=== PATIENT | female | born 1985 | race Caucasian/White ===

== ENCOUNTER → 2016-09-08 | Outpatient (CLI) | payer OTHER ==
[2016-09-08 08:35] LABS: HEMOGLOBIN 14.4 g/dL (11.7-16.4)
[2016-09-08 09:25] LABS: BLOOD UREA NITROGEN 16 mg/dL (7-18)
[2016-09-08 09:36] LABS: ASPARTATE AMINO TRANSFERASE 14 U/L (15-37)
== END | disposition home or self-care (01) ==
LOC: LAB 08:08
PROVIDERS: ATTEND Family Medicine
DX: E04.1 Nontoxic single thyroid nodule (principal); L29.9 Pruritus, unspecified
CPT/HCPCS: 36415; 80053; 84443; 85025

== ENCOUNTER → 2016-09-12 | Outpatient (CLI) | payer OTHER | END | disposition home or self-care (01) | LOC: EDSTATUS 09-04 14:00 → RAD 09:19 | PROVIDERS: ATTEND Family Medicine | DX: E04.1 Nontoxic single thyroid nodule (principal) | CPT/HCPCS: 76536 ==

== ENCOUNTER → 2016-09-22 | Outpatient (CLI) | payer OTHER ==
[~2016-09-22] MED LIST: LIDOCAINE 1%, 20ML ONE; SODIUM BICARBONATE 4.2%, 5ML ONE
== END | disposition home or self-care (01) ==
LOC: RAD 12:34
PROVIDERS: ATTEND Family Medicine
DX: E04.1 Nontoxic single thyroid nodule (principal)
CPT/HCPCS: 76942; 88173; J3490

== ENCOUNTER → 2016-10-07 | Outpatient (CLI) | payer OTHER ==
[~2016-10-07] MED LIST changes: +MULTIHANCE 529 MG/ML, 10ML IV ONE; +OMNIPAQUE 300 MG/ML, 10ML VIAL ONE; +ROPivacaine/PF 0.2%, 10 ML ONE; +TRIAMCINOLONE ACETONIDE 40 MG/ML, 1ML ONE
== END | disposition home or self-care (01) ==
LOC: RAD 08:18
PROVIDERS: ATTEND Orthopaedic Surgery
DX: Q65.89 Other specified congenital deformities of hip (principal)
CPT/HCPCS: 73525; 73722; A9577; J2795; J3301; J3490; Q9967

== ENCOUNTER → 2016-10-21 | Outpatient (CLI) | payer OTHER | END | disposition home or self-care (01) | LOC: LAB 14:41 | PROVIDERS: ATTEND Allergy & Immunology | DX: L29.9 Pruritus, unspecified (principal) | CPT/HCPCS: 36415; 82784; 82785; 83520; 84155; 84165; 85651; 86140; 86334 ==

== ENCOUNTER → 2017-01-25 | Outpatient (CLI) | payer OTHER ==
[2017-01-25 10:11] LABS: HEMATOCRIT 40.5 % (34.6-47.8); HEMOGLOBIN 13.5 g/dL (11.7-16.4); WHITE BLOOD COUNT 9.3 x10^3/uL (3.4-10)
[2017-02-03 05:11] LABS: 5-HIAA URINE 24HR 5.4 mg/24 hr (0.0-14.9)
== END | disposition home or self-care (01) ==
LOC: LAB 09:35
PROVIDERS: ATTEND Allergy & Immunology
DX: L29.8 Other pruritus (principal)
CPT/HCPCS: 36415; 82542; 83088; 83497; 84150; 85025; 85651; 86140; 86316; 88184; 88185

== ENCOUNTER → 2017-03-29 | Outpatient (CLI) | payer OTHER ==
[2017-03-29 11:45] LABS: HIV 1&2 ANTIBODY SCREEN Nonreactive (Nonreactive); HIV-1 p24 ANTIGEN Nonreactive (Nonreactive)
[2017-03-30 08:42] LABS: HEP B SURF. AB 310.7 mIU/mL (0.0-10.0)
== END | disposition home or self-care (01) ==
LOC: LAB 10:58
PROVIDERS: ATTEND Obstetrics & Gynecology Reproductive Endocrinology
DX: Z13.29 Encounter for screening for other suspected endocrine disorder (principal); E28.9 Ovarian dysfunction, unspecified
CPT/HCPCS: 84146; 84443; 86592; 86703; 86706; 86803; 87340; 87491; 87591; 87899; G0435

== ENCOUNTER 2017-07-26 10:06 | Emergency (ER) | payer OTHER ==
[~2017-07-26] VITALS: Ht 162.6 cm; Wt 91.0 kg
[2017-07-26] MEDS ORDERED: OMEP-110 PO (10:32)
[2017-07-26] MEDS ORDERED: PRENATAL PO (10:32)
[2017-07-26 10:40] LABS: MICROSCOPIC NOT IND
[2017-07-26 10:45] LABS: CULTURE INDICATED? NO
[2017-07-26 10:56] LABS: BASOPHILS # (AUTO) 0.04 x10^3/uL (0-0.1); BASOPHILS % (AUTO) 0 % (0-1); EOSINOPHILS # (AUTO) 0.12 x10^3/uL (0-0.4); EOSINOPHILS % (AUTO) 1 % (1-7); LYMPHOCYTES # (AUTO) 1.45 x10^3/uL (1-3.4); LYMPHOCYTES % (AUTO) 13 % (22-44); MD NO; MEAN CORPUSCULAR HEMOGLOBIN 31.3 pg (27.0-34.8); MEAN CORPUSCULAR HGB CONC 34.9 g/dL (32.4-35.8); MEAN CORPUSCULAR VOLUME 89.7 fL (80-100); MEAN PLATELET VOLUME 8.8 fL (7.4-10.4); MONOCYTES # (AUTO) 0.52 x10^3/uL (0.2-0.8); MONOCYTES % (AUTO) 5 % (2-9); NEUTROPHILS # (AUTO) 9.22 x10^3/uL (1.8-6.8); NEUTROPHILS % (AUTO) 81 % (42-75); PLATELET COUNT 219 x10^3/uL (130-400); RED BLOOD COUNT 4.51 x10^6/uL (3.82-5.3); RED CELL DISTRIBUTION WIDTH 12.7 % (9.6-15.2)
[2017-07-26 11:06] LABS: ALANINE AMINOTRANSFERASE 29 U/L (12-78); ALBUMIN 3.1 g/dL (3.4-5.0); ANION GAP 6 mmol/L (5-15); CALCIUM 9.1 mg/dL (8.5-10.1); CHLORIDE 107 mmol/L (98-107); CREATININE 0.63 mg/dL (0.55-1.02)
[2017-07-26 11:08] LABS: ALKALINE PHOSPHATASE 49 U/L (45-117); BILIRUBIN,TOTAL 0.3 mg/dL (0.2-1.0)
[2017-07-26 11:42] VITALS: BP 117/66
== END 2017-07-26 12:08 | disposition home or self-care (01) ==
LOC: ED 11:10
DX: O26.891 Other specified pregnancy related conditions, first trimester (principal); M54.5 Low back pain; O99.611 Diseases of the digestive system complicating pregnancy, first trimester; K21.9 Gastro-esophageal reflux disease without esophagitis; Z3A.11 11 weeks gestation of pregnancy
CPT/HCPCS: 36415; 76770; 80053; 81003; 83690; 85025; 99285

== ENCOUNTER → 2017-07-26 | Outpatient (CLI) | payer OTHER ==
[~2017-07-26] MED LIST changes: -LIDOCAINE 1%, 20ML ONE; -MULTIHANCE 529 MG/ML, 10ML IV ONE; +OMEP-110 PO; -OMNIPAQUE 300 MG/ML, 10ML VIAL ONE; +PRENATAL PO; -ROPivacaine/PF 0.2%, 10 ML ONE; -SODIUM BICARBONATE 4.2%, 5ML ONE; -TRIAMCINOLONE ACETONIDE 40 MG/ML, 1ML ONE
[2017-07-26 08:57] LABS: BASOPHILS # (AUTO) 0.03 x10^3/uL (0-0.1); BASOPHILS % (AUTO) 0 % (0-1); EOSINOPHILS # (AUTO) 0.14 x10^3/uL (0-0.4); EOSINOPHILS % (AUTO) 1 % (1-7); LYMPHOCYTES # (AUTO) 1.19 x10^3/uL (1-3.4); LYMPHOCYTES % (AUTO) 11 % (22-44); MD NO; MEAN CORPUSCULAR HEMOGLOBIN 30.3 pg (27.0-34.8); MEAN CORPUSCULAR HGB CONC 33.6 g/dL (32.4-35.8); MEAN CORPUSCULAR VOLUME 90.3 fL (80-100); MEAN PLATELET VOLUME 8.6 fL (7.4-10.4); MONOCYTES # (AUTO) 0.24 x10^3/uL (0.2-0.8); MONOCYTES % (AUTO) 2 % (2-9); NEUTROPHILS # (AUTO) 9.04 x10^3/uL (1.8-6.8); NEUTROPHILS % (AUTO) 85 % (42-75); PLATELET COUNT 208 x10^3/uL (130-400); RED BLOOD COUNT 4.62 x10^6/uL (3.82-5.3); RED CELL DISTRIBUTION WIDTH 12.5 % (9.6-15.2)
== END | disposition home or self-care (01) ==
LOC: LAB 08:27
PROVIDERS: ATTEND Advanced Practice Midwife
DX: Z34.81 Encounter for supervision of other normal pregnancy, first trimester (principal); Z3A.11 11 weeks gestation of pregnancy
CPT/HCPCS: 36415; 85025; 86592; 86762; 86850; 86900; 87340; 87806; G0475

== ENCOUNTER → 2017-10-01 | Outpatient (CLI) | payer OTHER | END | disposition home or self-care (01) | LOC: LAB 09:00 | PROVIDERS: ATTEND Advanced Practice Midwife | DX: Z34.82 Encounter for supervision of other normal pregnancy, second trimester (principal); Z3A.00 Weeks of gestation of pregnancy not specified | CPT/HCPCS: 36415; 82105 ==

== ENCOUNTER → 2017-12-21 | Outpatient (CLI) | payer OTHER ==
[2017-12-21 11:01] LABS: BASOPHILS # (AUTO) 0.05 x10^3/uL (0-0.1); BASOPHILS % (AUTO) 1 % (0-1); EOSINOPHILS # (AUTO) 0.04 x10^3/uL (0-0.4); EOSINOPHILS % (AUTO) 0 % (1-7); LYMPHOCYTES # (AUTO) 1.56 x10^3/uL (1-3.4); LYMPHOCYTES % (AUTO) 15 % (22-44); MD NO; MEAN CORPUSCULAR HEMOGLOBIN 30.6 pg (27.0-34.8); MEAN CORPUSCULAR HGB CONC 34.3 g/dL (32.4-35.8); MEAN CORPUSCULAR VOLUME 89.1 fL (80-100); MONOCYTES # (AUTO) 0.55 x10^3/uL (0.2-0.8); MONOCYTES % (AUTO) 5 % (2-9); NEUTROPHILS # (AUTO) 8.34 x10^3/uL (1.8-6.8); NEUTROPHILS % (AUTO) 79 % (42-75); PLATELET COUNT 212 x10^3/uL (130-400); RED BLOOD COUNT 4.03 x10^6/uL (3.82-5.3); RED CELL DISTRIBUTION WIDTH 13.5 % (9.6-15.2)
== END | disposition home or self-care (01) ==
LOC: LAB 10:41
PROVIDERS: ATTEND Obstetrics & Gynecology Maternal & Fetal Medicine
DX: Z34.83 Encounter for supervision of other normal pregnancy, third trimester (principal); Z3A.30 30 weeks gestation of pregnancy
CPT/HCPCS: 36415; 85025

== ENCOUNTER 2018-01-12 12:36 | Inpatient (IN) | payer OTHER ==
[~2018-01-12] VITALS: Ht 162.6 cm; Wt 95.5 kg
[2018-01-12] MEDS ORDERED: BETAMETHASONE 6 MG/ML, 5ML IM ONE (13:45)
[2018-01-12 14:00] LABS: BASOPHILS # (AUTO) 0.02 x10^3/uL (0-0.1); BASOPHILS % (AUTO) 0 % (0-1); EOSINOPHILS # (AUTO) 0.13 x10^3/uL (0-0.4); EOSINOPHILS % (AUTO) 1 % (1-7); LYMPHOCYTES # (AUTO) 1.49 x10^3/uL (1-3.4); LYMPHOCYTES % (AUTO) 15 % (22-44); MD NO; MEAN CORPUSCULAR HEMOGLOBIN 28.6 pg (27.0-34.8); MEAN CORPUSCULAR VOLUME 86.8 fL (80-100); MEAN PLATELET VOLUME 8.6 fL (7.4-10.4); MONOCYTES # (AUTO) 0.45 x10^3/uL (0.2-0.8); MONOCYTES % (AUTO) 4 % (2-9); NEUTROPHILS % (AUTO) 79 % (42-75); PLATELET COUNT 222 x10^3/uL (130-400); RED BLOOD COUNT 4.19 x10^6/uL (3.82-5.3)
[2018-01-12] MEDS: BETAMETHASONE 6 MG/ML, 5ML IM SCH (14:22)
[2018-01-12] MEDS ORDERED: CALCIUM CARBONATE 500 MG TAB.CHEW ONE (18:01)
[2018-01-12] MEDS: GUAIFENESIN/DM 200-20MG, 10ML UDC PO PRN (18:07)
[2018-01-12] MEDS: CALCIUM CARBONATE 500 MG TAB.CHEW PO PRN (18:07)
[2018-01-12] MEDS ORDERED: LACTATED RINGERS 1,000 ML IV SCH ×3 (19:15→20:50)
[2018-01-12] MEDS ORDERED: FENTANYL PF 100 MCG/2ML ONE (19:17)
[2018-01-12] MEDS ORDERED: CEFAZOLIN 1,000 MG ONE (19:17)
[2018-01-12] MEDS ORDERED: HYDROmorphone 2 MG/ML, 1ML ONE (19:17)
[2018-01-12] MEDS ORDERED: OXYTOCIN 10 UNITS/ML, 1ML ONE (19:17)
[2018-01-12] MEDS ORDERED: ONDANSETRON 2MG/ML, 2ML ONE (19:17)
[2018-01-12] MEDS ORDERED: NEWBORN KIT ONE (19:18)
[2018-01-12] MEDS ORDERED: METHYLERGONOVINE 0.2 MG/ML IM ONE (19:20)
[2018-01-12] MEDS ORDERED: EPHEDRINE 50 MG/ML, 1ML ONE (19:20)
[2018-01-12] MEDS ORDERED: TRANEXAMIC ACID 100 MG/ML, 10ML ONE (19:30)
[2018-01-12] MEDS ORDERED: OXYTOCIN 30U/ 0.9% NaCL 500ML 500 ML ONE (19:33)
[2018-01-12] MEDS ORDERED: PANTOPROZOLE 40MG TABLET PO SCH (20:00)
[2018-01-12] MEDS ORDERED: MIDAZOLAM 1 MG/ML, 5ML ONE (20:16)
[2018-01-12] MEDS ORDERED: SODIUM CHLORIDE 0.9% PF 10ML ONE (20:21)
[2018-01-12] MEDS ORDERED: METOPROLOL 1 MG/ML, 5ML ONE (20:21)
[2018-01-12] MEDS: OXYTOCIN 30U/ 0.9% NaCL 500ML 500 ML IV SCH (20:31)
[2018-01-12] MEDS ORDERED: DIPHENHYDRAMINE 50 MG/ML, 1ML ONE (20:37)
[2018-01-12] MEDS ORDERED: OXYTOCIN 30U/ 0.9% NaCL 500ML 500 ML IV SCH (20:50)
[2018-01-12] MEDS ORDERED: BISACODYL 10 MG SUPP PR PRN (21:00)
[2018-01-12] MEDS ORDERED: LACTATED RINGERS 1,000 ML IVBOLUS ONE (21:00)
[2018-01-12] MEDS ORDERED: RHOGAM FROM BLOOD BANK 1 NOTE EA IM/IV ONE (21:00)
[2018-01-12] MEDS ORDERED: MISOPROSTOL 200 MCG TABLET PO PRN (21:00)
[2018-01-12] MEDS ORDERED: OXYcodone/APAP 5/325MG TABLET PO PRN (21:00)
[2018-01-12] MEDS ORDERED: IBUPROFEN 600 MG TABLET PO PRN (21:00)
[2018-01-12] MEDS ORDERED: METHYLERGONOVINE 0.2 MG/ML IM PRN (21:00)
[2018-01-12] MEDS ORDERED: MEPERIDINE/PF 100 MG/ML ONE (21:00)
[2018-01-12 21:22] LABS: MEAN CORPUSCULAR VOLUME 88.1 fL (80-100); MEAN PLATELET VOLUME 8.7 fL (7.4-10.4); PLATELET COUNT 257 x10^3/uL (130-400); RED BLOOD COUNT 3.29 x10^6/uL (3.82-5.3)
[2018-01-12] MEDS ORDERED: KETOROLAC 30 MG/1 ML IM SCH (21:30)
[2018-01-12] MEDS ORDERED: KETOROLAC 30 MG/1 ML ONE (21:32)
[2018-01-12] MEDS: KETOROLAC 30 MG/1 ML IVPush SCH (21:43)
[2018-01-12 21:46] LABS: MD YES
[2018-01-12 21:48] LABS: BAND#(MANUAL) 1.65 x10^3/uL; BANDS%(MANUAL) 7 % (0-7); LYMPH#(MANUAL) 0.71 x10^3/uL (1-3.4); LYMPHS% (MANUAL) 3 % (22-44); MONOS#(MANUAL) 0.47 x10^3/uL (0.3-2.7); MONOS% (MANUAL) 2 % (2-9); SEG#(MANUAL) 20.68 x10^3/uL (1.8-6.8); SEGS% (MANUAL) 88 % (42-75)
[2018-01-12 21:49] LABS: ANISOCYTOSIS 2+; MICROCYTOSIS 1+; POLYCHROMASIA 1+
[2018-01-12 21:51] LABS: TOXIC GRAN 2+
[2018-01-12 21:52] LABS: <PLATELET ESTIMATE> ADEQUATE; LARGE PLATELETS 1+
[2018-01-12] MEDS ORDERED: OXYcodone IR 5MG TABLET ONE (21:54)
[2018-01-12] MEDS: OXYcodone IR 5MG TABLET PO PRN (22:00)
[2018-01-12] MEDS ORDERED: MISOPROSTOL 200 MCG TABLET ONE (23:00)
[2018-01-12] MEDS ORDERED: MEPERIDINE/PF 25MG/0.5ML IVPush ONE (23:00)
[2018-01-12] MEDS ORDERED: DIPHENHYDRAMINE 50 MG/ML, 1ML IVPush ONE (23:00)
[2018-01-12] MEDS ORDERED: THROMBIN 5,000 UNIT VIAL TP ONE (23:00)
[2018-01-13] MEDS ORDERED: OXYcodone IR 5MG TABLET ONE ×2 (01:05→06:12)
[2018-01-13 01:18] LABS: MEAN CORPUSCULAR HEMOGLOBIN 29.4 pg (27.0-34.8); MEAN CORPUSCULAR HGB CONC 33.5 g/dL (32.4-35.8); MEAN CORPUSCULAR VOLUME 87.6 fL (80-100); MEAN PLATELET VOLUME 8.4 fL (7.4-10.4); PLATELET COUNT 185 x10^3/uL (130-400); RED BLOOD COUNT 2.61 x10^6/uL (3.82-5.3); RED CELL DISTRIBUTION WIDTH 13.5 % (9.6-15.2)
[2018-01-13] MEDS: OXYcodone IR 5MG TABLET PO PRN ×3 (01:23→20:11)
[2018-01-13 01:44] LABS: MD YES
[2018-01-13 01:46] LABS: ANISOCYTOSIS 1+; BANDS%(MANUAL) 2 % (0-7); LYMPH#(MANUAL) 1.21 x10^3/uL (1-3.4); LYMPHS% (MANUAL) 6 % (22-44); METAMYELOCYTES% (MANUAL) 1 % (0-1); MICROCYTOSIS 1+; MONOS% (MANUAL) 1 % (2-9); POLYCHROMASIA 1+; SEG#(MANUAL) 18.09 x10^3/uL (1.8-6.8); SEGS% (MANUAL) 90 % (42-75); TOXIC GRAN 2+
[2018-01-13 01:47] LABS: <PLATELET ESTIMATE> ADEQUATE; LARGE PLATELETS 1+
[2018-01-13] MEDS ORDERED: KETOROLAC 30 MG/1 ML ONE ×3 (03:17→15:21)
[2018-01-13] MEDS: KETOROLAC 30 MG/1 ML IVPush SCH ×4 (03:30→21:45)
[2018-01-13] MEDS ORDERED: DOCUSATE 100 MG CAPSULE ONE (03:41)
[2018-01-13] MEDS ORDERED: OXYcodone/APAP 5/325MG TABLET ONE ×2 (03:41→11:41)
[2018-01-13] MEDS: DOCUSATE 100 MG CAPSULE PO PRN ×2 (03:50→20:11)
[2018-01-13] MEDS: LACTATED RINGERS 1,000 ML IV SCH ×3 (04:15→16:31)
[2018-01-13] MEDS: OXYTOCIN 30U/ 0.9% NaCL 500ML 500 ML IV SCH ×2 (06:31→16:31)
[2018-01-13] MEDS ORDERED: OXYcodone/APAP 10/325MG TABLET ONE ×2 (07:58→15:59)
[2018-01-13] MEDS: D5%-LACTATED RINGERS 1,000 ML IV SCH ×2 (08:12→16:00)
[2018-01-13] MEDS: PRENATAL VIT/IRON/FA 1 EACH TABLET PO SCH (09:00)
[2018-01-13] MEDS ORDERED: CALCIUM CARBONATE 500 MG TAB.CHEW ONE (09:46)
[2018-01-13] MEDS: CALCIUM CARBONATE 500 MG TAB.CHEW PO PRN (09:47)
[2018-01-13 10:19] LABS: BASOPHILS % (AUTO) 0 % (0-1); EOSINOPHILS % (AUTO) 0 % (1-7); LYMPHOCYTES # (AUTO) 1.11 x10^3/uL (1-3.4); LYMPHOCYTES % (AUTO) 7 % (22-44); MD NO; MEAN CORPUSCULAR HEMOGLOBIN 30.2 pg (27.0-34.8); MEAN CORPUSCULAR HGB CONC 34.3 g/dL (32.4-35.8); MEAN CORPUSCULAR VOLUME 88.1 fL (80-100); MEAN PLATELET VOLUME 8.8 fL (7.4-10.4); MONOCYTES # (AUTO) 0.91 x10^3/uL (0.2-0.8); MONOCYTES % (AUTO) 6 % (2-9); NEUTROPHILS # (AUTO) 14.54 x10^3/uL (1.8-6.8); NEUTROPHILS % (AUTO) 88 % (42-75); PLATELET COUNT 187 x10^3/uL (130-400); RED BLOOD COUNT 2.68 x10^6/uL (3.82-5.3); RED CELL DISTRIBUTION WIDTH 13.8 % (9.6-15.2)
[2018-01-13] MEDS ORDERED: OXYcodone/APAP 5/325MG TABLET PO PRN (12:00)
[2018-01-13] MEDS: GUAIFENESIN/DM 200-20MG, 10ML UDC PO PRN (12:44)
[2018-01-13] MEDS: BETAMETHASONE 6 MG/ML, 5ML IM SCH (13:30)
[2018-01-13] MEDS ORDERED: OXYcodone/APAP 10/325MG TABLET PO ONE (16:30)
[2018-01-13 20:11] VITALS: BP 99/63
[2018-01-13] MEDS: ACETAMINOPHEN 325 MG TABLET PO PRN (20:11)
[2018-01-14] MEDS: ACETAMINOPHEN 325 MG TABLET PO PRN ×5 (00:10→20:25)
[2018-01-14] MEDS: OXYcodone IR 5MG TABLET PO PRN ×5 (00:10→20:24)
[2018-01-14] MEDS: GUAIFENESIN/DM 200-20MG, 10ML UDC PO PRN ×4 (00:34→13:52)
[2018-01-14] MEDS: OXYTOCIN 30U/ 0.9% NaCL 500ML 500 ML IV SCH (02:31)
[2018-01-14] MEDS: LACTATED RINGERS 1,000 ML IV SCH (02:31)
[2018-01-14] MEDS: KETOROLAC 30 MG/1 ML IVPush SCH ×2 (04:32→10:50)
[2018-01-14 08:00] VITALS: BP 118/77
[2018-01-14] MEDS: DOCUSATE 100 MG CAPSULE PO PRN ×2 (08:07→20:24)
[2018-01-14] MEDS: FERROUS GLUCONATE 324 MG TABLET PO SCH (08:07)
[2018-01-14] MEDS: CALCIUM CARBONATE 500 MG TAB.CHEW PO PRN (08:16)
[2018-01-14] MEDS: PANTOPROZOLE 40MG TABLET PO SCH (08:47)
[2018-01-14] MEDS: PRENATAL VIT/IRON/FA 1 EACH TABLET PO SCH (09:00)
[2018-01-14] MEDS ORDERED: DIPHENHYDRAMINE 25 MG CAPSULE PO PRN (14:30)
[2018-01-14] MEDS: IBUPROFEN 600 MG TABLET PO PRN (16:09)
[2018-01-14 19:15] VITALS: BP 117/75
[2018-01-15] MEDS: OXYcodone IR 5MG TABLET PO PRN ×3 (05:01→14:28)
[2018-01-15] MEDS: IBUPROFEN 600 MG TABLET PO PRN ×2 (05:01→11:00)
[2018-01-15] MEDS: ACETAMINOPHEN 325 MG TABLET PO PRN ×3 (05:01→14:28)
[2018-01-15 05:37] LABS: MEAN CORPUSCULAR HEMOGLOBIN 30.5 pg (27.0-34.8); MEAN CORPUSCULAR HGB CONC 34.2 g/dL (32.4-35.8); MEAN CORPUSCULAR VOLUME 89.3 fL (80-100); MEAN PLATELET VOLUME 8.6 fL (7.4-10.4); PLATELET COUNT 199 x10^3/uL (130-400); RED BLOOD COUNT 2.47 x10^6/uL (3.82-5.3); RED CELL DISTRIBUTION WIDTH 14.2 % (9.6-15.2)
[2018-01-15] MEDS: GUAIFENESIN/DM 200-20MG, 10ML UDC PO PRN ×2 (05:40→09:45)
[2018-01-15 06:23] LABS: BASOPHILS # (AUTO) 0.03 x10^3/uL (0-0.1); BASOPHILS % (AUTO) 0 % (0-1); EOSINOPHILS # (AUTO) 0.13 x10^3/uL (0-0.4); EOSINOPHILS % (AUTO) 1 % (1-7); LYMPHOCYTES # (AUTO) 1.98 x10^3/uL (1-3.4); LYMPHOCYTES % (AUTO) 16 % (22-44); MD SCAN; MONOCYTES # (AUTO) 0.62 x10^3/uL (0.2-0.8); MONOCYTES % (AUTO) 5 % (2-9); NEUTROPHILS % (AUTO) 78 % (42-75)
[2018-01-15 08:10] VITALS: BP 123/74
[2018-01-15] MEDS: FERROUS GLUCONATE 324 MG TABLET PO SCH (08:26)
[2018-01-15] MEDS: PANTOPROZOLE 40MG TABLET PO SCH (08:26)
[2018-01-15] MEDS: DOCUSATE 100 MG CAPSULE PO PRN (08:26)
[2018-01-15] MEDS: PRENATAL VIT/IRON/FA 1 EACH TABLET PO SCH (09:00)
[2018-01-15] MEDS ORDERED: PANT40TA5 PO (10:23)
[2018-01-15] MEDS ORDERED: ACET325C PO (10:27)
[2018-01-15] MEDS ORDERED: DOCU-131 PO (10:30)
[2018-01-15] MEDS ORDERED: OXYC-302 PO (10:31)
[2018-01-15] MEDS ORDERED: FERR324T8 PO (10:32)
[2018-01-15] MEDS ORDERED: IBUP-1222 PO (10:35)
== END 2018-01-15 15:13 | disposition home or self-care (01) | DRG 765 ==
LOC: LDOP 12:36 → LDIP 13:43 → OBSVTOIN 13:43 → 2NE 01-13 07:43 → 2NW 01-14 03:35
PROVIDERS: ADMIT Obstetrics & Gynecology Maternal & Fetal Medicine; ATTEND Obstetrics & Gynecology Maternal & Fetal Medicine
PROC: 10D00Z0 Extraction of Products of Conception, High, Open Approach (ICD-10-PCS; principal; 2018-01-12)
PROC: 30233N1 Transfusion of Nonautologous Red Blood Cells into Peripheral Vein, Percutaneous Approach (ICD-10-PCS; 2018-01-13)
DX: O69.81X0 Labor and delivery complicated by cord around neck, without compression, not applicable or unspecified (principal); O44.13 Complete placenta previa with hemorrhage, third trimester; D50.0 Iron deficiency anemia secondary to blood loss (chronic); O32.2XX0 Maternal care for transverse and oblique lie, not applicable or unspecified; O90.81 Anemia of the puerperium; O43.213 Placenta accreta, third trimester; O43.123 Velamentous insertion of umbilical cord, third trimester; Z37.0 Single live birth; Z3A.37 37 weeks gestation of pregnancy; Z3A.35 35 weeks gestation of pregnancy
CPT/HCPCS: 36415; J7121; 82803; 85025; 86850; 86900; 86923; 88307; J0690; J0702; J1170; J1885; J2175; J2250; J2405; J3010; J1200; J2210; J2590; J7120; P9016; Q0163

== ENCOUNTER → 2018-06-30 | Outpatient (CLI) | payer OTHER ==
[~2018-06-30] MED LIST changes: +ACET325C3 PO; +ASCO10004 PO; +CELE200C PO; +DOCU-131 PO; +FERR324T8 PO; +IBUP-1222 PO; +IBUP-1223 PO; +LACT1CAP35 PO; +OMEP20TA62 PO; +OXYC-302 PO; +PANT40TA5 PO
[2018-06-30 09:07] LABS: MICROSCOPIC NOT IND
[2018-06-30 09:15] LABS: CULTURE INDICATED? NO
== END | disposition home or self-care (01) ==
LOC: STAR 08:17
PROVIDERS: ATTEND Orthopaedic Surgery
DX: Z01.818 Encounter for other preprocedural examination (principal); M16.9 Osteoarthritis of hip, unspecified; Q65.89 Other specified congenital deformities of hip
CPT/HCPCS: 81003; 87081; 93005

== ENCOUNTER 2018-07-13 09:19 | Inpatient (IN) | payer OTHER ==
[~2018-07-13] VITALS: Ht 162.6 cm; Wt 99.9 kg
[~2018-07-13 09:19] MED LIST changes: +FENTANYL PF 250 MCG/5ML ONE; +KETAMINE 50 MG/ML, 10ML ONE; +MIDAZOLAM 1 MG/ML, 2ML ONE; +PROPOFOL 100 ML ONE
[2018-07-13] MEDS ORDERED: morphine SULFATE/PF 1 MG/ML, 10ML ONE (09:46)
[2018-07-13] MEDS ORDERED: KETOROLAC 60 MG/2 ML ONE (09:46)
[2018-07-13] MEDS ORDERED: ROPIvacaine/PF 0.5%, 30 ML ONE (09:46)
[2018-07-13] MEDS ORDERED: BACITRACIN 50,000 UNIT ONE (09:46)
[2018-07-13] MEDS ORDERED: SCOPOLAMINE PATCH, 1.5MG PATCH.TD72 TD ONE ×2 (10:00→10:04)
[2018-07-13] MEDS ORDERED: GABAPENTIN 300 MG CAPSULE PO ONE (10:00)
[2018-07-13] MEDS ORDERED: ACETAMINOPHEN 500 MG TABLET PO ONE (10:00)
[2018-07-13] MEDS ORDERED: ACETAMINOPHEN 500 MG TABLET ONE (10:03)
[2018-07-13] MEDS ORDERED: GABAPENTIN 300 MG CAPSULE ONE (10:04)
[2018-07-13] MEDS: LACTATED RINGERS 1,000 ML IV SCH ×2 (10:10→10:13)
[2018-07-13 10:24] LABS: HCG UR SG 1.021 (1.003-1.030)
[2018-07-13] MEDS ORDERED: OXYcodone 5 MG/5 ML ORAL.SOL UDC PO PRN (10:30)
[2018-07-13] MEDS ORDERED: DIAZEPAM 5 MG/ML, 2ML IVPush PRN (10:30)
[2018-07-13] MEDS ORDERED: ONDANSETRON ODT 8 MG PO PRN (10:30)
[2018-07-13] MEDS ORDERED: ONDANSETRON 2MG/ML, 2ML IV PRN (10:30)
[2018-07-13] MEDS ORDERED: LIDOCAINE-MPF 2% ,5ML ONE (11:37)
[2018-07-13] MEDS ORDERED: DEXAMETHASONE 4 MG/ML, 1ML ONE (11:37)
[2018-07-13] MEDS ORDERED: TRANEXAMIC ACID 100 MG/ML, 10ML ONE (11:40)
[2018-07-13] MEDS ORDERED: BUPIVACAINE LIPOSOME/PF 10ML INFIL ONE (12:32)
[2018-07-13] MEDS ORDERED: NEOSTIGMINE 1 MG/ML, 10ML ONE (13:13)
[2018-07-13] MEDS ORDERED: ROCURONIUM 10MG/ML,5ML ONE (13:13)
[2018-07-13] MEDS ORDERED: ONDANSETRON 2MG/ML, 2ML ONE (13:13)
[2018-07-13] MEDS ORDERED: SUCCINYLCHOLINE 20 MG/ML, 10ML ONE (13:13)
[2018-07-13] MEDS ORDERED: GLYCOPYRROLATE 0.2MG/1ML, 5ML ONE (13:13)
[2018-07-13] MEDS ORDERED: PROPOFOL 10 MG/ML, 20ML ONE (13:13)
[2018-07-13] MEDS ORDERED: CEFAZOLIN 1,000 MG ONE (13:13)
[2018-07-13] MEDS ORDERED: FENTANYL PF 100 MCG/2ML ONE (14:16)
[2018-07-13] MEDS ORDERED: OXYcodone 5 MG/5 ML ORAL.SOL UDC ONE (14:17)
[2018-07-13] MEDS ORDERED: HYDROmorphone 1 MG/ML, 1ML ONE (14:17)
[2018-07-13] MEDS: FENTANYL PF 100 MCG/2ML IV PRN ×2 (14:19→14:39)
[2018-07-13] MEDS ORDERED: PROMETHAZINE 25 MG/ML, 1ML ONE (14:22)
[2018-07-13] MEDS: PROMETHAZINE 25 MG/ML, 1ML IV PRN ×2 (14:23→14:54)
[2018-07-13] MEDS: HYDROmorphone 2 MG/ML, 1ML IVPush PRN ×2 (14:29→15:05)
[2018-07-13 16:00] VITALS: BP 113/81
[2018-07-13] MEDS ORDERED: TRANEXAMIC ACID 1,000 MG in SODIUM CHLORIDE 0.9% 100 ML IV ONE (16:00)
[2018-07-13] MEDS ORDERED: DIPHENHYDRAMINE 25 MG CAPSULE PO PRN (17:00)
[2018-07-13] MEDS ORDERED: MAGNESIUM HYDROXIDE 8%, 30ML UDC PO PRN (17:00)
[2018-07-13] MEDS ORDERED: OXYcodone IR 5MG TABLET PO PRN (17:00)
[2018-07-13] MEDS ORDERED: ACETAMINOPHEN 325 MG TABLET PO PRN (17:00)
[2018-07-13] MEDS: HYDROcodone/APAP 10/325 MG TABLET PO PRN ×2 (17:18→21:13)
[2018-07-13] MEDS: POTASSIUM CHLORIDE 20 MEQ in D5%-0.45% NACL 1,000 ML IV SCH (17:19)
[2018-07-13] MEDS: CEFAZOLIN PMX 2GM/50ML 50 ML IVPB SCH (19:35)
[2018-07-13 20:32] VITALS: BP 112/67
[2018-07-13] MEDS: SODIUM CHLORIDE FLUSH 10ML SYR IVF SCH (21:00)
[2018-07-13] MEDS: DOCUSATE 100 MG CAPSULE PO SCH (21:12)
[2018-07-14] MEDS: HYDROcodone/APAP 10/325 MG TABLET PO PRN ×4 (01:03→13:24)
[2018-07-14] MEDS: POTASSIUM CHLORIDE 20 MEQ in D5%-0.45% NACL 1,000 ML IV SCH ×2 (01:03→11:52)
[2018-07-14 01:44] VITALS: BP 121/75
[2018-07-14] MEDS: morphine SULFATE 10 MG/ML, 1ML IV PRN ×2 (01:49→05:54)
[2018-07-14] MEDS: CEFAZOLIN PMX 2GM/50ML 50 ML IVPB SCH (04:48)
[2018-07-14] MEDS: ALUMINUM/MAG/SIMETHICONE 30 ML UDC PO PRN ×2 (04:54→09:43)
[2018-07-14] MEDS ORDERED: ASPIRIN 325 MG TABLET EC PO SCH (06:00)
[2018-07-14 07:52] VITALS: BP 96/60
[2018-07-14] MEDS: DOCUSATE 100 MG CAPSULE PO SCH (07:53)
[2018-07-14] MEDS: SODIUM CHLORIDE FLUSH 10ML SYR IVF SCH (07:54)
[2018-07-14] MEDS: ONDANSETRON ODT 4 MG PO PRN ×2 (09:37→13:24)
[2018-07-14 14:26] VITALS: BP 97/61
[2018-07-14] MEDS ORDERED: OXYcodone 5 MG/5 ML ORAL.SOL UDC ONE (14:53)
[2018-07-14] MEDS ORDERED: KETOROLAC 30 MG/1 ML IV SCH (17:00)
== END 2018-07-14 15:33 | disposition home or self-care (01) | DRG 470 ==
LOC: ORIP 09:19 → 4NOR 15:58 → DCLOUNGE 07-14 15:20
PROVIDERS: ADMIT Orthopaedic Surgery; ATTEND Orthopaedic Surgery
PROC: 0QU507Z Supplement Left Acetabulum with Autologous Tissue Substitute, Open Approach (ICD-10-PCS; 2018-07-13)
PROC: 0QB50ZZ Excision of Left Acetabulum, Open Approach (ICD-10-PCS; 2018-07-13)
PROC: 0SRB04Z Replacement of Left Hip Joint with Ceramic on Polyethylene Synthetic Substitute, Open Approach (ICD-10-PCS; principal; 2018-07-13 11:00)
DX: M16.12 Unilateral primary osteoarthritis, left hip (principal); Q65.89 Other specified congenital deformities of hip; M85.68 Other cyst of bone, other site
CPT/HCPCS: 36415; 73502; J3490; 81025; 86850; 86900; C1713; G0378; J0690; J1100; J1170; J1885; J2250; J2274; J2405; J2550; J2704; J2710; J2795; J3010; J3480; Q0162; C1776; J0330; J2270; J7120; Q0163

== ENCOUNTER → 2018-09-05 | Outpatient (CLI) | payer OTHER ==
[~2018-09-05] MED LIST changes: -FENTANYL PF 250 MCG/5ML ONE; -KETAMINE 50 MG/ML, 10ML ONE; -MIDAZOLAM 1 MG/ML, 2ML ONE; -PROPOFOL 100 ML ONE
[2018-09-05 07:32] LABS: BASOPHILS # (AUTO) 0.04 x10^3/uL (0-0.1); BASOPHILS % (AUTO) 1 % (0-1); EOSINOPHILS # (AUTO) 0.25 x10^3/uL (0-0.4); EOSINOPHILS % (AUTO) 3 % (1-7); LYMPHOCYTES # (AUTO) 1.76 x10^3/uL (1-3.4); LYMPHOCYTES % (AUTO) 23 % (22-44); MD NO; MEAN CORPUSCULAR HGB CONC 32.9 g/dL (32.4-35.8); MEAN PLATELET VOLUME 8.5 fL (7.4-10.4); MONOCYTES # (AUTO) 0.48 x10^3/uL (0.2-0.8); MONOCYTES % (AUTO) 6 % (2-9); NEUTROPHILS # (AUTO) 5.06 x10^3/uL (1.8-6.8); NEUTROPHILS % (AUTO) 67 % (42-75); PLATELET COUNT 251 x10^3/uL (130-400)
[2018-09-05 07:34] LABS: ALANINE AMINOTRANSFERASE 22 U/L (12-78); ALBUMIN 3.7 g/dL (3.4-5.0); ANION GAP 6 mmol/L (5-15); CALCIUM 8.9 mg/dL (8.5-10.1); CHLORIDE 110 mmol/L (98-107); CHOLESTEROL, TOTAL 176 mg/dL (140-239); CREATININE 0.76 mg/dL (0.55-1.02)
[2018-09-05 07:44] LABS: ALKALINE PHOSPHATASE 69 U/L (45-117); BILIRUBIN,TOTAL 0.2 mg/dL (0.2-1.0); HDL CHOL % 33 % (28-40); HDL CHOLESTEROL (DIRECT) 58 mg/dL (40-60); LDL CHOLESTEROL,CALCULATED 97 mg/dL (54-169); LDL/HDL RATIO 1.7 (0.5-3.0); T4 (THYROXINE) 9.2 mcg/dL (4.8-13.9); TOTAL PROTEIN 6.7 g/dL (6.4-8.2); TRIGLYCERIDES 105 mg/dL (50-200); VLDL CHOLESTEROL 21 mg/dL (0-25)
== END | disposition home or self-care (01) ==
LOC: LAB 07:06
PROVIDERS: ATTEND Registered Nurse
DX: Z00.01 Encounter for general adult medical examination with abnormal findings (principal); Z13.6 Encounter for screening for cardiovascular disorders; F32.9 Major depressive disorder, single episode, unspecified
CPT/HCPCS: 36415; 80053; 80061; 84436; 84443; 85025

== ENCOUNTER → 2018-09-15 | Outpatient (CLI) | payer OTHER | END | disposition home or self-care (01) | LOC: CFH 07:08 | PROVIDERS: ATTEND Registered Nurse | DX: Z12.31 Encounter for screening mammogram for malignant neoplasm of breast (principal); E04.1 Nontoxic single thyroid nodule; Z80.3 Family history of malignant neoplasm of breast | CPT/HCPCS: 76536; 77067 ==

== ENCOUNTER → 2019-05-05 | Outpatient (CLI) | payer OTHER ==
[2019-05-05 10:03] LABS: ALANINE AMINOTRANSFERASE 36 U/L (12-78); ALBUMIN 3.7 g/dL (3.4-5.0); ANION GAP 5 mmol/L (5-15); CALCIUM 8.7 mg/dL (8.5-10.1); CHLORIDE 111 mmol/L (98-107); CREATININE 0.72 mg/dL (0.55-1.02)
[2019-05-05 10:14] LABS: ALKALINE PHOSPHATASE 65 U/L (45-117); BILIRUBIN,TOTAL 0.6 mg/dL (0.2-1.0); FREE T4 (FREE THYROXINE) 1.12 ng/dL (0.76-1.46); TOTAL PROTEIN 7.2 g/dL (6.4-8.2)
== END | disposition home or self-care (01) ==
LOC: LAB 09:34
PROVIDERS: ATTEND Registered Nurse
DX: E04.1 Nontoxic single thyroid nodule (principal); R10.9 Unspecified abdominal pain
CPT/HCPCS: 36415; 80053; 82150; 82784; 83516; 83690; 84439; 84443; 86255

== ENCOUNTER 2020-01-15 19:31 | Emergency (ER) | payer OTHER ==
[~2020-01-15] VITALS: Ht 162.6 cm; Wt 93.4 kg
--- NOTE | 2020-01-15 20:00 | NUR ---
assumed care of pt. pt here for swelling and intermittent pail to LLE x3 days. denies injury. pt reports that she has had intermittent numbness/tingling to middle 3 toes. CMS of L foot intact. dorsalis pedis and posterior tibial pulses palpable and marked. 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 no other c/o. no discoloration noted
--- NOTE | 2020-01-15 20:00 | NUR ---
assumed care of pt. pt here c/o pain and swelling to RLE x3 days. pt deneis injury. reports that she has some intermittent numbness/tingling to middle 3 toes. CMS of R foot intact. dorsalis pedis and posterior tibilal pulses palpable and marked. pt has not take pain meds [employer]. reports that she is concerned as she has had a r total hip replacement.
[2020-01-15] MEDS ORDERED: BUPR-86 PO (20:04)
--- NOTE | 2020-01-15 20:44 | NUR ---
X-ray has bene to bedside
--- NOTE | 2020-01-15 20:58 | NUR ---
US at bedside
--- NOTE | 2020-01-15 21:18 | NUR ---
pt resting in position of comfort. awaiting test results
[2020-01-15 22:45] VITALS: BP 113/76
== END 2020-01-15 22:50 | disposition home or self-care (01) ==
LOC: ED 20:20
DX: S93.492A Sprain of other ligament of left ankle, initial encounter (principal); K21.9 Gastro-esophageal reflux disease without esophagitis; Z96.642 Presence of left artificial hip joint; X58.XXXA Exposure to other specified factors, initial encounter; Y93.89 Activity, other specified; Y92.89 Other specified places as the place of occurrence of the external cause; Y99.8 Other external cause status
CPT/HCPCS: 99284

== ENCOUNTER 2020-02-11 03:50 | Inpatient (IN) | payer OTHER ==
[~2020-02-11] VITALS: Ht 162.6 cm; Wt 96.0 kg
[~2020-02-11 03:50] MED LIST changes: +ASCO100018 PO; -ASCO10004 PO; +BUPR-86 PO; -PANT40TA5 PO; +PANT40TA6 PO
[2020-02-11] MEDS ORDERED: SODIUM CHLORIDE 0.9% 1,000 ML IV SCH (04:14)
[2020-02-11 04:19] VITALS: BP 97/59
[2020-02-11] MEDS ORDERED: VANCOMYCIN PER PHARMACY MC PRN (04:30)
[2020-02-11] MEDS ORDERED: DOCUSATE 100 MG CAPSULE PO PRN (04:30)
[2020-02-11] MEDS ORDERED: HYDROcodone/APAP 5/325 TABLET PO PRN ×2 (04:30→08:30)
[2020-02-11] MEDS ORDERED: ACETAMINOPHEN 325 MG TABLET PO PRN ×3 (04:30→14:00)
[2020-02-11] MEDS: morphine SULFATE 10 MG/ML, 1ML IVPush PRN ×2 (04:39→05:26)
[2020-02-11] MEDS ORDERED: PLEASE ENTER HEIGHT AND WEIGHT MC SCH (05:00)
[2020-02-11] MEDS ORDERED: PHARMACOKINETIC MONITORING MC PRN (05:00)
[2020-02-11] MEDS: ONDANSETRON 2MG/ML, 2ML IVPush PRN ×5 (05:26→22:18)
[2020-02-11 05:33] LABS: HCG UR SG 1.015 (1.003-1.030)
[2020-02-11] MEDS: AMPICILLIN/SULBACTAM 3 GM in SODIUM CHLORIDE 0.9% 100 ML IV SCH ×3 (05:59→21:28)
[2020-02-11] MEDS ORDERED: VANCOMYCIN 1,800 MG in SODIUM CHLORIDE 0.9% 250 ML IV ONE (06:30)
[2020-02-11 07:30] VITALS: BP 99/67
[2020-02-11] MEDS: HEPARIN 5,000 UNITS/ML, 1ML SQ SCH ×2 (08:30→16:25)
[2020-02-11] MEDS ORDERED: HEPARIN 5,000 UNITS/ML, 1ML SQ SCH (08:30)
[2020-02-11] MEDS: MORPHINE SULFATE 4 MG/ML, 1ML IVPush PRN ×2 (08:40→11:57)
[2020-02-11] MEDS: BUPROPION 100 MG TABLET PO SCH ×3 (08:43→21:46)
[2020-02-11 08:49] LABS: BASOPHILS # (AUTO) 0.04 x10^3/uL (0-0.1); BASOPHILS % (AUTO) 1 % (0-1); EOSINOPHILS # (AUTO) 0.07 x10^3/uL (0-0.4); EOSINOPHILS % (AUTO) 1 % (1-7); LYMPHOCYTES # (AUTO) 2.21 x10^3/uL (1-3.4); LYMPHOCYTES % (AUTO) 29 % (22-44); MD NO; MEAN CORPUSCULAR HEMOGLOBIN 29.9 pg (27.0-34.8); MEAN CORPUSCULAR HGB CONC 33.4 g/dL (32.4-35.8); MEAN CORPUSCULAR VOLUME 89.5 fL (80-100); MONOCYTES # (AUTO) 0.51 x10^3/uL (0.2-0.8); MONOCYTES % (AUTO) 7 % (2-9); NEUTROPHILS # (AUTO) 4.86 x10^3/uL (1.8-6.8); NEUTROPHILS % (AUTO) 63 % (42-75); PLATELET COUNT 188 x10^3/uL (130-400); RED BLOOD COUNT 4.46 x10^6/uL (3.82-5.3); RED CELL DISTRIBUTION WIDTH 13.1 % (9.6-15.2)
[2020-02-11 08:56] LABS: INTERNATIONAL NORMALIZED RATIO 1.07 (0.93-1.1)
[2020-02-11 08:58] LABS: ANION GAP 6 mmol/L (5-15); CALCIUM 8.7 mg/dL (8.5-10.1); CHLORIDE 110 mmol/L (98-107); CREATININE 0.73 mg/dL (0.55-1.02)
[2020-02-11] MEDS: HYDROcodone/APAP 5/325 TABLET PO PRN ×2 (10:24→22:19)
[2020-02-11] MEDS ORDERED: morphine SULFATE 10 MG/ML, 1ML IVPush PRN ×2 (10:30→14:00)
[2020-02-11] MEDS ORDERED: CALCIUM CARBONATE 500 MG TAB.CHEW PO PRN (10:30)
[2020-02-11] MEDS ORDERED: FENTANYL PF 250 MCG/5ML ONE (13:45)
[2020-02-11] MEDS ORDERED: MIDAZOLAM 1 MG/ML, 2ML ONE (13:45)
[2020-02-11] MEDS ORDERED: BUPIVACAINE/EPI 0.5% 1:200K ONE (13:47)
[2020-02-11] MEDS ORDERED: LABETALOL 5MG/ML, 20ML IV PRN (14:00)
[2020-02-11] MEDS ORDERED: HYDROmorphone 1 MG/ML, 1ML INJ IVPush PRN (14:00)
[2020-02-11] MEDS ORDERED: OXYcodone 5 MG/5 ML ORAL.SOL UDC PO PRN (14:00)
[2020-02-11] MEDS ORDERED: MEPERIDINE/PF 25MG/0.5ML IVPush PRN (14:00)
[2020-02-11] MEDS ORDERED: HALOPERIDOL 5 MG/ML IV PRN (14:00)
[2020-02-11] MEDS ORDERED: PROMETHAZINE 25 MG/ML, 1ML IVPush PRN (14:00)
[2020-02-11] MEDS ORDERED: hydrALAzine 20 MG/ML, 1ML IV PRN (14:00)
[2020-02-11] MEDS ORDERED: ROCURONIUM 10MG/ML,5ML ONE (16:50)
[2020-02-11] MEDS ORDERED: NEOSTIGMINE 1 MG/ML, 10ML ONE (16:50)
[2020-02-11] MEDS ORDERED: DEXAMETHASONE 4 MG/ML, 1ML ONE (16:50)
[2020-02-11] MEDS ORDERED: GLYCOPYRROLATE 0.2MG/1ML, 5ML ONE (16:50)
[2020-02-11] MEDS ORDERED: PROPOFOL 10 MG/ML, 20ML ONE (16:50)
[2020-02-11] MEDS ORDERED: FENTANYL PF 100 MCG/2ML ONE ×2 (16:50→17:38)
[2020-02-11] MEDS ORDERED: CEFAZOLIN 1,000 MG ONE (16:50)
[2020-02-11] MEDS ORDERED: ONDANSETRON 2MG/ML, 2ML ONE ×2 (16:50→17:38)
[2020-02-11] MEDS: FENTANYL PF 100 MCG/2ML IV PRN ×2 (17:45→18:16)
[2020-02-11] MEDS ORDERED: HYDROcodone/APAP 7.5-325MG/15ML UDC ONE (18:07)
[2020-02-11] MEDS ORDERED: HYDROcodone/APAP 7.5-325MG/15ML UDC PO PRN (18:30)
[2020-02-11 18:45] VITALS: BP 104/67
[2020-02-11] MEDS ORDERED: MONTELUKAST 10 MG TABLET PO SCH (21:00)
[2020-02-11] MEDS: KETOROLAC 30 MG/1 ML IVPush PRN (21:28)
[2020-02-11] MEDS: VANCOMYCIN 1,500 MG in SODIUM CHLORIDE 0.9% 250 ML IV SCH (23:15)
[2020-02-12 00:51] VITALS: BP 101/63
[2020-02-12] MEDS: HEPARIN 5,000 UNITS/ML, 1ML SQ SCH ×2 (02:48→10:30)
[2020-02-12] MEDS: HYDROcodone/APAP 5/325 TABLET PO PRN ×3 (02:50→14:23)
[2020-02-12] MEDS: KETOROLAC 30 MG/1 ML IVPush PRN (03:32)
[2020-02-12] MEDS: AMPICILLIN/SULBACTAM 3 GM in SODIUM CHLORIDE 0.9% 100 ML IV SCH ×3 (03:32→14:30)
[2020-02-12 03:56] VITALS: BP 84/53
[2020-02-12 05:35] LABS: BASOPHILS # (AUTO) 0.02 x10^3/uL (0-0.1); BASOPHILS % (AUTO) 0 % (0-1); EOSINOPHILS # (AUTO) 0.01 x10^3/uL (0-0.4); EOSINOPHILS % (AUTO) 0 % (1-7); LYMPHOCYTES # (AUTO) 0.98 x10^3/uL (1-3.4); LYMPHOCYTES % (AUTO) 10 % (22-44); MD NO; MEAN CORPUSCULAR HEMOGLOBIN 29.5 pg (27.0-34.8); MEAN CORPUSCULAR HGB CONC 32.3 g/dL (32.4-35.8); MEAN CORPUSCULAR VOLUME 91.4 fL (80-100); MEAN PLATELET VOLUME 8.7 fL (7.4-10.4); MONOCYTES # (AUTO) 0.73 x10^3/uL (0.2-0.8); MONOCYTES % (AUTO) 8 % (2-9); NEUTROPHILS % (AUTO) 82 % (42-75); PLATELET COUNT 168 x10^3/uL (130-400); RED BLOOD COUNT 3.98 x10^6/uL (3.82-5.3)
[2020-02-12 05:37] LABS: ANION GAP 7 mmol/L (5-15); CALCIUM 8.6 mg/dL (8.5-10.1); CHLORIDE 108 mmol/L (98-107); CREATININE 0.71 mg/dL (0.55-1.02)
[2020-02-12] MEDS ORDERED: OMEPRAZOLE 20 MG CAPSULE.DR PO SCH (06:00)
[2020-02-12 07:33] VITALS: BP 89/51
[2020-02-12] MEDS: BUPROPION 100 MG TABLET PO SCH (08:28)
[2020-02-12] MEDS: SODIUM CHLORIDE 0.9% 1,000 ML IV SCH ×2 (08:29→15:00)
[2020-02-12] MEDS ORDERED: PEDS NS BOLUS IV.SOLN 20ML/KG IVBOLUS ONE (08:30)
[2020-02-12] MEDS ORDERED: SODIUM CHLORIDE 0.9% 1,000ML IVBOLUS ONE (08:30)
[2020-02-12] MEDS ORDERED: LACTOBACILLUS CHEW TABLET PO SCH (09:00)
[2020-02-12] MEDS ORDERED: OXYC5CAP2 PO (10:13)
[2020-02-12] MEDS ORDERED: CEPH500T PO (12:23)
[2020-02-12] MEDS: VANCOMYCIN 1,500 MG in SODIUM CHLORIDE 0.9% 250 ML IV SCH (12:35)
[2020-02-12 13:05] VITALS: BP 110/75
[2020-02-12] MEDS ORDERED: VANCOMYCIN 1,800 MG in SODIUM CHLORIDE 0.9% 250 ML IV SCH (21:00)
== END 2020-02-12 16:14 | disposition home or self-care (01) | DRG 512 ==
LOC: 4NE 03:50 → DCLOUNGE 02-12 16:10
PROVIDERS: ADMIT Family Medicine; ATTEND Internal Medicine
PROC: 0PSJ34Z Reposition Left Radius with Internal Fixation Device, Percutaneous Approach (ICD-10-PCS; 2020-02-11)
PROC: 0PSL04Z Reposition Left Ulna with Internal Fixation Device, Open Approach (ICD-10-PCS; principal; 2020-02-11 14:15)
DX: S52.092B Other fracture of upper end of left ulna, initial encounter for open fracture type I or II (principal); S52.182 Other fracture of upper end of left radius; K21.9 Gastro-esophageal reflux disease without esophagitis; E66.9 Obesity, unspecified; F32.9 Major depressive disorder, single episode, unspecified; Z96.642 Presence of left artificial hip joint; Z20.828 Contact with and (suspected) exposure to other viral communicable diseases; Z83.3 Family history of diabetes mellitus; Z68.36 Body mass index [BMI] 36.0-36.9, adult; Y93.89 Activity, other specified; Y99.8 Other external cause status; V29.88XA Motorcycle rider (driver) (passenger) injured in other specified transport accidents, initial encounter; Y92.098 Other place in other non-institutional residence as the place of occurrence of the external cause
CPT/HCPCS: 36415; 76000; 80048; 81025; 85025; 85610; 87635; G0378; J0295; J0690; J1100; J1644; J1885; J2250; J2405; J2704; J2710; J3010; J3370; J2270; J7030; J7050